=== PATIENT | male | born 1985 | race Caucasian/White ===

== ENCOUNTER 2023-06-20 11:53 | Outpatient (CLI) | payer BC, SELFPAY ==
[2023-06-20 12:35] LABS: Sperm Present Sperm Not Present
== END 2023-06-20 11:54 | disposition home or self-care (01) ==
LOC: LAB 11:56
PROVIDERS: Visit Provider Urology
DX: Z98.52 Vasectomy status (principal)
CPT/HCPCS: 80503; 89310